=== PATIENT | female | born 1955 | race American Indian/Alaskan Native ===

== ENCOUNTER 2017-02-22 17:53 | Emergency (ER) | payer MEDICAID ==
[2017-02-23 05:12] LABS: Basophils % (Auto) 0.9 % (0.0-1.8); Eosinophils % (Auto) 1.5 % (0.0-4.3); Hematocrit 41.4 % (30.3-42.9); Hemoglobin 13.2 gm/dl (10.1-14.3); Mean Corpuscular HGB Conc 32 % (30-34); Mean Corpuscular Hemoglobin 29 pg (28-32); Mean Corpuscular Volume 89 fl (79-97); Platelet Count 405 K/mm3 (140-440); Red Blood Count 4.65 M/mm3 (3.65-5.03); White Blood Count 14.6 K/mm3 (4.5-11.0)
[2017-02-23 05:21] LABS: BUN/Creatinine Ratio 21.66; Calcium 9.6 mg/dL (8.4-10.2); Chloride 98.7 mmol/L (98-107)
--- NOTE | 2017-02-23 05:35 | Cat Scan Report ---
FINAL REPORT PROCEDURE: CT HEAD/BRAIN WO CON TECHNIQUE: Computerized tomography of the head was performed without contrast material. HISTORY: HEADACHE COMPARISON: No prior studies are available for comparison. FINDINGS: Skull and scalp: Normal. Paranasal sinuses: Normal. Ventricles and subarachnoid spaces: Normal. Cerebrum: No evidence of hemorrhage, acute infarction or mass . Cerebellum and brainstem: No evidence of hemorrhage, acute infarction or mass. Vasculature: Normal. Comments: None. IMPRESSION: There is no intracranial hemorrhage, edema, mass, mass effect or midline shift. The bony calvarium is intact. The paranasal sinuses are clear.
[2017-02-23] MEDS ORDERED: DECADRON IV ONE (06:29)
[2017-02-23] MEDS ORDERED: FIORICET PO ONE (06:29)
[2017-02-23] MEDS ORDERED: REGLAN IV ONE (06:29)
[2017-02-23] MEDS ORDERED: MAGNESIUM SULFATE 2GM/50ML 2 GM/50 ML BAG IV ONE (06:29)
[2017-02-23] MEDS ORDERED: BENADRYL IV ONE (06:29)
--- NOTE | 2017-02-23 06:30 | Emergency Department Report ---
ED General Adult HPI - General Chief complaint: Headache Stated complaint: SEVERE HEADACHE Time Seen by Provider: 02/23/17 06:15 Source: patient, RN notes reviewed, old records reviewed Mode of arrival: Ambulatory Limitations: No Limitations - History of Present Illness Initial comments: This is a 61-year-old female. She is previously unknown to me. Past medical history includes hypertension, diabetes, high cholesterol, GERD, anemia, sciatica, sleep apnea, colonic polyps, diverticulitis and pancreatitis. Her pain specialist is as follows: Kinga Cassidy MD [facility] [address] [place] [address] Main [phone] Fax The patient presents to the ER today with multiple complaints. The patient reports that this past Sunday, her pain specialist did a nerve injection on her bilateral lower back. She reports that shortly thereafter, she developed some nausea and vomiting. She reports that while she was having nausea and vomiting, she accidentally urinated on herself. Since then, the patient has not had any issues with urinary retention, or urinary incontinence. The patient does reports that she's had some issues with fecal incontinence since the procedure. Patient reports that she has the sensation of needing to have a bowel movement, but that she defecates on herself anyhow. She also describes a headache. The headache is throbbing and global. It is not sudden or thunderclap in nature. It did not reach maximal intensity within an hour. This is not the worse headache of her life. The headache has been present for a few days. It reached maximal intensity 2 days after the onset. It has been constant. There is no temporal pain. There is no jaw pain or jaw claudication. -: Gradual Location: head Severity scale (0 -10): 7 Consistency: constant Improves with: none Worsens with: none Associated Symptoms: headaches, nausea/vomiting (now resolved). denies: confusion, chest pain, cough, diaphoresis, loss of appetite, malaise - Related Data Home Medications Medication Instructions Recorded Confirmed Last Taken Aspirin EC [Halfprin EC] 81 mg PO QDAY 01/08/14 02/23/17 09/21/15 09:00 Atenolol [Tenormin] 100 mg PO DAILY 01/08/14 02/23/17 09/22/15 09:00 Folic Acid 1 mg PO DAILY 01/08/14 02/23/17 09/22/15 09:00 Losartan [Cozaar] 100 mg PO QDAY 01/08/14 02/23/17 09/22/15 09:00 Omeprazole [Prilosec] 40 mg PO QDAY 01/08/14 02/23/17 09/22/15 09:00 Pregabalin [Lyrica] 75 mg PO BID 01/08/14 02/23/17 09/22/15 22:00 Valacyclovir HCl [Valacyclovir] 500 mg PO DAILY 01/08/14 02/23/17 09/21/15 09:00 amLODIPine [Norvasc] 10 mg PO DAILY 01/08/14 02/23/17 09/22/15 09:00 metFORMIN [Glucophage] 500 mg PO DAILY 01/08/14 02/23/17 09/22/15 09:00 Albuterol 1 inhalation INHALATION TID 07/14/15 02/23/17 09/03/15 09:00 Iron 325 mg PO TID 07/14/15 02/23/17 09/21/15 09:00 Latanoprost 1 drop OU QHS 07/14/15 02/23/17 09/22/15 22:00 Proventil 0.5% NEBS 1 inhalation INHALATION TID 07/14/15 02/23/17 09/03/15 09:00 Vitamin D3 1 tab PO DAILY 07/14/15 02/23/17 09/22/15 09:00 ZyrTEC 10 mg PO DAILY 07/14/15 02/23/17 09/22/15 09:00 Cyclobenzaprine HCl [Flexeril 5 MG 5 mg PO QDAY 09/14/15 02/23/17 09/22/15 09:00 TAB] Gabapentin [Neurontin] 300 mg PO Q8HR 09/14/15 02/23/17 09/22/15 22:00 Meloxicam [Mobic] 15 mg PO HS 09/14/15 02/23/17 09/22/15 22:00 Pravastatin Sodium [Pravastatin] 40 mg PO QHS 09/14/15 02/23/17 09/22/15 22:00 Temazepam 15 mg PO HS 09/14/15 02/23/17 09/22/15 22:00 Previous Rx's Medication Instructions Recorded Last Taken Type HYDROcodone/APAP 10-325 [[place] 1 each PO Q6HR PRN #14 tablet 05/14/14 09/19/15 09:00 Rx 10/325] Allergies Allergy/AdvReac Type Severity Reaction Status Date / Time latex AdvReac Swelling Verified 07/14/15 09:52 lisinopril AdvReac Unknown Verified 07/14/15 09:52 ED Review of Systems ROS: Stated complaint: SEVERE HEADACHE Other details as noted in HPI Constitutional: denies: fever, malaise Eyes: denies: vision change ENT: denies: epistaxis Respiratory: denies: cough Cardiovascular: denies: chest pain Gastrointestinal: diarrhea. denies: abdominal pain Genitourinary: denies: dysuria Musculoskeletal: denies: back pain, arthralgia, myalgia Skin: denies: lesions Neurological: headache Psychiatric: anxiety ED Past Medical Hx - Past Medical History Previous Medical History?: Yes Hx Hypertension: Yes (1998) Hx Congestive Heart Failure: Yes Hx Diabetes: Yes (2011) Hx GERD: Yes (5YRS) Hx Renal Disease: Yes (renal insufficiency) Hx Arthritis: Yes Hx Asthma: Yes Hx COPD: No Hx HIV: No Additional medical history: bursitis, morpheous-schlederma - Surgical History Past Surgical History?: Yes Hx Breast Surgery: Yes (REDUCTION ) Additional Surgical History: c section, shoulder, tonsil removed bilat carpal tunnel - Social History Smoking Status: Never Smoker Substance Use Type: None - Medications Home Medications: Home Medications Medication Instructions Recorded Confirmed Last Taken Type Aspirin EC [Halfprin EC] 81 mg PO QDAY 01/08/14 02/23/17 09/21/15 09:00 History Atenolol [Tenormin] 100 mg PO DAILY 01/08/14 02/23/17 09/22/15 09:00 History Folic Acid 1 mg PO DAILY 01/08/14 02/23/17 09/22/15 09:00 History Losartan [Cozaar] 100 mg PO QDAY 01/08/14 02/23/17 09/22/15 09:00 History Omeprazole [Prilosec] 40 mg PO QDAY 01/08/14 02/23/17 09/22/15 09:00 History Pregabalin [Lyrica] 75 mg PO BID 01/08/14 02/23/17 09/22/15 22:00 History Valacyclovir HCl [Valacyclovir] 500 mg PO DAILY 01/08/14 02/23/17 09/21/15 09: 00 History amLODIPine [Norvasc] 10 mg PO DAILY 01/08/14 02/23/17 09/22/15 09:00 History metFORMIN [Glucophage] 500 mg PO DAILY 01/08/14 02/23/17 09/22/15 09:00 History HYDROcodone/APAP 10-325 [[place] 1 each PO Q6HR PRN #14 tablet 05/14/14 02/23/17 09/19/15 09:00 Rx 10/325] Albuterol 1 inhalation INHALATION TID 07/14/15 02/23/17 09/03/15 09:00 History Iron 325 mg PO TID 07/14/15 02/23/17 09/21/15 09:00 History Latanoprost 1 drop OU QHS 07/14/15 02/23/17 09/22/15 22:00 History Proventil 0.5% NEBS 1 inhalation INHALATION TID 07/14/15 02/23/17 09/03/15 09: 00 History Vitamin D3 1 tab PO DAILY 07/14/15 02/23/17 09/22/15 09:00 History ZyrTEC 10 mg PO DAILY 07/14/15 02/23/17 09/22/15 09:00 History Cyclobenzaprine HCl [Flexeril 5 MG 5 mg PO QDAY 09/14/15 02/23/17 09/22/15 09: 00 History TAB] Gabapentin [Neurontin] 300 mg PO Q8HR 09/14/15 02/23/17 09/22/15 22:00 History Meloxicam [Mobic] 15 mg PO HS 09/14/15 02/23/17 09/22/15 22:00 History Pravastatin Sodium [Pravastatin] 40 mg PO QHS 09/14/15 02/23/17 09/22/15 22:00 History Temazepam 15 mg PO HS 09/14/15 02/23/17 09/22/15 22:00 History ED Physical Exam - General Limitations: No Limitations General appearance: alert, in no apparent distress - Head Head exam: Present: atraumatic, normocephalic - Eye Eye exam: Present: normal appearance, PERRL, EOMI, other (visual acuity intact to finger counting, color perception, reading at a close distance). Absent: nystagmus - ENT ENT exam: Present: normal exam, normal orophraynx, mucous membranes moist, normal external ear exam - Neck Neck exam: Present: normal inspection, full ROM. Absent: tenderness, meningismus - Respiratory Respiratory exam: Present: normal lung sounds bilaterally. Absent: respiratory distress, wheezes, rales, rhonchi, stridor, chest wall tenderness, accessory muscle use, decreased breath sounds, prolonged expiratory - Cardiovascular Cardiovascular Exam: Present: regular rate, normal rhythm, normal heart sounds. Absent: bradycardia, tachycardia, irregular rhythm, systolic murmur, diastolic murmur, rubs, gallop - GI/Abdominal GI/Abdominal exam: Present: soft, normal bowel sounds. Absent: distended, tenderness, guarding, rebound, rigid, pulsatile mass - Rectal Rectal exam: Present: normal inspection, normal rectal tone, other (during rectal examination, I am escorted by nurse DEVI RAMIREZ) - Extremities Exam Extremities exam: Present: normal inspection, full ROM, normal capillary refill. Absent: tenderness, pedal edema, joint swelling, calf tenderness - Back Exam Back exam: Present: normal inspection, full ROM. Absent: tenderness, CVA tenderness (R), CVA tenderness (L), muscle spasm, paraspinal tenderness, vertebral tenderness - Neurological Exam Neurological exam: Present: alert, oriented X3, normal gait, other (Extraocular movements intact. Tongue midline. No facial droop. Facial sensation intact to light touch in the V1, V2, V3 distribution bilaterally. 5 and 5 strength in 4 extremities.. Sensation is intact to light touch in 4 extremities.). Absent : motor sensory deficit (sensation is intact to light touch, pinprick, proprioception in 4 extremities. Downgoing plantar reflexes in the bilateral lower extremities.) - Psychiatric Psychiatric exam: Present: normal affect, normal mood - Skin Skin exam: Present: warm, dry, intact, normal color. Absent: rash ED Course Vital Signs 02/23/17 02/23/17 02/23/17 04:13 05:46 11:27 Temperature 98.1 F 98.1 F Pulse Rate 71 66 70 Respiratory 18 14 18 Rate Blood Pressure 152/75 Blood Pressure 151/72 162/79 [Left] O2 Sat by Pulse 97 98 100 Oximetry 02/23/17 15:00 Temperature 98.5 F Pulse Rate 80 Respiratory 16 Rate Blood Pressure Blood Pressure 145/101 [Left] O2 Sat by Pulse 99 Oximetry - Reevaluation(s) Reevaluation #1: 02/23/17 08:35 Differential diagnosis: Migraine headache, tension headache, cluster headache, diarrhea, urinary tract infection, spinal cord injury Assessment and plan: 61-year-old female with headache and nonspecific reported fecal incontinence. She is afebrile with unremarkable vital signs with the exception of slight hypertension. She has a GCS of 15, with an NIH score of 0, and she walks with a steady gait. Objectively speaking, her neurologic examination is unremarkable, she has appropriate strength, sensation, there is no saddle anesthesia, there is no rectal tone. Furthermore, she is able to control her bladder, and her postvoid residual was 80 mL. This clinical presentation is very unlikely to be consistent with epidural compression syndrome, tethered cord, or spinal cord injury. Nevertheless, an MR of the lumbar spine has been performed. She is treated symptomatically for her headache, and by history her headache is not consistent with stroke or subarachnoid hemorrhage. We are currently awaiting results of the MRI of her lumbar spine. I will discuss with her pain specialist to determine what specific procedure she had done. Reevaluation #2: 02/23/17 09:27 received a call back from Dr Kinga Cassidy MD he indicates that the patient had l3-l4, l4-l5, l5-s1 radio frequency facet joint ablation not in the epidural space Reevaluation #3: 02/23/17 11:47 case is discussed with Dr. Concepcion, neurosurgeon at [facility]. He reports that based on the patient's history and physical, the patient is not appropriate for surgical intervention at this time, does not require transfer for emergent neurosurgical consultation. He further indicates that the findings of arachnoiditis or radiographic findings, sometimes inflammatory, but not suggestive of infectious symptoms. He does recommend contacting the patient 's physical medicine physician, and seeing if they have an old MRI to compare to. Reevaluation #4: 02/23/17 12:40 called [facility] to discuss with their neurosurgeon, they are unable to take the call as they have no beds [place] [facility] [place]uation #5: 02/23/17 12:47 Case is discussed with Dr. Benavidez, physician at [facility], who accepts the patient as an ER to ER transfer for neurosurgical consultation. old mri report reviewed, findings are new, it will be scanned into chart 02/23/17 12:49 02/23/17 15:40 ED Medical Decision Making - Lab Data Result diagrams: 02/23/17 04:35 02/23/17 04:35 Vital Signs 02/23/17 02/23/17 04:13 05:46 Temperature 98.1 F Pulse Rate 71 66 Respiratory 18 14 Rate Blood Pressure 152/75 Blood Pressure 151/72 [Left] O2 Sat by Pulse 97 98 Oximetry Labs 02/23/17 02/23/17 02/23/17 04:35 04:35 06:54 WBC 14.6 H RBC 4.65 Hgb 13.2 Hct 41.4 MCV 89 MCH 29 MCHC 32 RDW 13.0 L Plt Count 405 Lymph % (Auto) 29.0 [place] % (Auto) 7.3 Eos % (Auto) 1.5 Baso % (Auto) 0.9 Lymph # 4.2 [place] # 1.1 H Eos # 0.2 Baso # 0.1 Seg Neutrophils % 61.3 Seg Neutrophils # 9.0 H Sodium 139 Potassium 4.0 Chloride 98.7 Carbon Dioxide 22 Anion Gap 22 BUN 39 H Creatinine 1.8 H Estimated GFR 35 BUN/Creatinine Ratio 21.66 Glucose 137 H Calcium 9.6 Urine Color Yellow Urine Turbidity Slightly-cloudy Urine pH 5.0 Ur Specific [place] 1.015 Urine Protein <15 mg/dl Urine Glucose (UA) Neg Urine Ketones Neg Urine Blood Sm Urine Nitrite Neg Urine Bilirubin Neg Urine Urobilinogen < 2.0 Ur Leukocyte Esterase Mod Urine WBC (Auto) 7.0 H Urine RBC (Auto) 6.0 U Epithel Cells (Auto) 7.0 Urine Bacteria (Auto) 1+ Hyaline Casts 6 Urine Mucus Few - Radiology Data Radiology results: report reviewed, image reviewed Noncontrast CT scan of the brain is negative Critical care attestation.: If time is entered above; I have spent that time in minutes in the direct care of this critically ill patient, excluding procedure time. ED Disposition Clinical Impression: Renal insufficiency, History of incontinence of feces Disposition: [id number] GEN HOSP IP Is pt being admited?: No Does the pt Need Aspirin: No Condition: Good Referrals: PRIMARY CARE, [Primary Care Provider] - 3-5 Days
[2017-02-23 07:10] LABS: Bacteria,Urine 1+ /HPF (Negative); Bilirubin,Urine NEG (Negative); Blood,Urine SM (Negative); Ketones,Urine NEG (Negative); Leukocyte Esterase,Urine MOD (Negative); Mucus,Urine FEW /HPF; Nitrite,Urine NEG (Negative); Protein,Urine <15 mg/dL mg/dL (Negative); Urobilinogen,Urine < 2.0 mg/dL (<2.0)
[2017-02-23] MEDS ORDERED: NACL 0.9% 1000 ML 1,000 ML IV ONE (08:30)
--- NOTE | 2017-02-23 10:40 | Magnetic Resonance Report ---
MRI scan lumbar spine: History: Back pain. Technique: Multiplanar multisequence images were obtained without contrast injection. Findings: Conus medullaris terminates at L1 with normal signal intensity. Normal lumbar lordosis. Normal pre-and paravertebral soft tissue. Normal height and signal intensity of vertebral bodies. Decrease in signal intensity of L4-L5 with degenerative changes in the adjacent endplates. L1-L2. Normal. L2-L3. Normal. L3-L4. No neuroforamina narrowing or central canal spinal stenosis.. Facet joints are present about unremarkable. L4-L5. Bilateral moderate to severe neuroforamina narrowing with mild central canal spinal stenosis. There is thickening and matting of nerve roots within the thecal sac. Also noted fluid in the facet joints. L5-S1. There is noted broad-based central disc bulge extending from 4:00 to 8:00 position causing extrinsic pressure on the ventral aspect of the thecal sac. Mild narrowing of neural foramina bilaterally. Degenerative facet joints. The nerve roots within the thecal sac are not optimally visualized. 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 MRI scan with contrast study is recommended. Additional findings as detailed above.
[2017-02-23] MEDS ORDERED: MORPHINE IV ONE (11:12)
[2017-02-23 15:02] VITALS: BP 145/101
== END 2017-02-23 15:02 | disposition short-term general hospital (02) ==
LOC: ED 17:53
DX: N28.9 Disorder of kidney and ureter, unspecified (principal); R15.9 Full incontinence of feces; I13.0 Hypertensive heart and chronic kidney disease with heart failure and stage 1 through stage 4 chronic kidney disease, or unspecified chronic kidney disease; E11.22 Type 2 diabetes mellitus with diabetic chronic kidney disease; N18.9 Chronic kidney disease, unspecified; I50.9 Heart failure, unspecified; K21.9 Gastro-esophageal reflux disease without esophagitis; M19.90 Unspecified osteoarthritis, unspecified site; J45.909 Unspecified asthma, uncomplicated; Z98.890 Other specified postprocedural states; Z90.89 Acquired absence of other organs; Z91.040 Latex allergy status; Z88.8 Allergy status to other drugs, medicaments and biological substances
CPT/HCPCS: 36415; 70450; 72148; 80048; 81001; 85025; 96361; 96365; 96375; 99285; J1100; J1200; J2270; J2765; J3475

== ENCOUNTER 2018-11-27 10:17 | Day surgery (SDC) | payer MEDICAID ==
[2018-11-27] MEDS ORDERED: NACL 0.9% 1000 ML 1,000 ML IV SCH (11:08)
[2018-11-27] MEDS ORDERED: DIPRIVAN 10 MG/ML IV ONE (12:04)
[2018-11-27] MEDS ORDERED: XYLOCAINE 1% 20 mL ONE (12:05)
[2018-11-27] MEDS ORDERED: NEO SYNEPHRINE/NS Syringe(OR USE) IV ONE (12:06)
[2018-11-27] MEDS ORDERED: KETALAR ONE (12:07)
--- NOTE | 2018-11-27 12:10 | Anesthesia Day of Surgery ---
Anesthesia Day of Surgery - Day of Surgery Patient Examined: Yes Patient H&P Reviewed: Yes Patient is NPO: Yes Beta Blockers: Yes
--- NOTE | 2018-11-27 12:11 | Anesthesia Consultation ---
Anesthesia Consult and Med Hx Date of service: 11/27/18 - Airway Anesthetic Teeth Evaluation: Good ROM Head & Neck: Adequate Mental/Hyoid Distance: Adequate Mallampati Class: Class III Intubation Access Assessment: Good - Pulmonary Exam CTA: No - Cardiac Exam Cardiac Exam: No Murmur - Pre-Operative Health Status ASA Pre-Surgery Classification: ASA3 Proposed Anesthetic Plan: MAC - Pulmonary Hx Smoking: Yes Hx Asthma: Yes SOB: Yes COPD: No Hx Sleep Apnea: Yes - Cardiovascular System Hx Hypertension: Yes - Central Nervous System Hx Back Pain: Yes (NECK AND SHOULDER PAIN 3/10 AT REST R/T [place];) Hx Psychiatric Problems: No - Gastrointestinal Hx Gastroesophageal Reflux Disease: Yes (dysphagia) - Endocrine Hx Renal Disease: Yes (renal insufficiency) Hx End Stage Renal Disease: No Hx Insulin Dependent Diabetes: Yes Hx Non-Insulin Dependent Diabetes: Yes (Takes metformin Pancreatitis 2011) Hx Hypothyroidism: Yes - Hematic Hx Anemia: Yes - Other Systems Hx Substance Use: Yes (YEARS 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
--- NOTE | 2018-11-27 12:50 | Procedure Note ---
Date of procedure: 11/27/18 Pre-op diagnosis: Colon Polyp Screening/ F/H/O Cancer Post-op diagnosis: other (No Colon polyps, diverticular disease or colitis noted/ mild to Moderate Internal Hemorrhoid) Procedure: Colonoscopy Anesthesia: MAC Surgeon: CIRA VARELA Estimated blood loss: minimal Pathology: none Specimen disposition: to lab Condition: stable Disposition: same day (Resume home medication and follow up in 1 to 2 weeks ([phone]).)
--- NOTE | 2018-11-27 13:04 | Operative Report ---
PROCEDURE: Colonoscopy. INDICATIONS: This is a 62-year-old obese -[place] female with an underlying history of diabetes mellitus type 2, hypertension, morbid obesity, and scleroderma, who has a family history of cancer. The patient's sister had ovarian cancer. Colonoscopy was done as part of colon polyp screening. DESCRIPTION OF PROCEDURE: Procedure was done after getting informed consent with MAC anesthesia. Initial rectal exam was unremarkable. Instrument was passed through the rectum onto the cecum, which was identified with ileocecal valve and appendiceal orifice. Visualization was fair. The scope was withdrawn up to the hepatic flexure and then reintroduced. No colon polyps were noted in the proximal colon, which is the cecum and the ascending colon as well as the transverse colon, descending colon and sigmoid likewise showed normal mucosa. There was no evidence of any polyps, colitis or diverticular disease. The rectum showed mild to moderate internal hemorrhoids. No other pathology was noted. There was no bleeding associated with the procedure. No complications associated with the procedure. ASSESSMENT: Colon polyp screening, family history of cancer. The patient's sister had ovarian cancer. No colon polyps noted. Mild to moderate internal hemorrhoids. PLAN: To resume previous medication. Have the patient follow up in the office in 1-2 weeks' time. Again, there was no bleeding or complications associated with the procedure and RNEssie was in the room throughout the entirety of the procedure. JOB# [id number] BOO/JOHN
[2018-11-27 14:11] VITALS: BP 117/72
== END 2018-11-27 10:18 | disposition home or self-care (01) ==
LOC: GIO 10:17
DX: Z12.11 Encounter for screening for malignant neoplasm of colon (principal); K64.8 Other hemorrhoids; I10 Essential (primary) hypertension; E66.01 Morbid (severe) obesity due to excess calories; H40.9 Unspecified glaucoma; I11.0 Hypertensive heart disease with heart failure; I50.9 Heart failure, unspecified; E78.5 Hyperlipidemia, unspecified; E78.00 Pure hypercholesterolemia, unspecified; G47.30 Sleep apnea, unspecified; J45.909 Unspecified asthma, uncomplicated; K21.9 Gastro-esophageal reflux disease without esophagitis; M19.90 Unspecified osteoarthritis, unspecified site; M79.7 Fibromyalgia; E10.39 Type 1 diabetes mellitus with other diabetic ophthalmic complication; E03.9 Hypothyroidism, unspecified; F41.9 Anxiety disorder, unspecified; F32.9 Major depressive disorder, single episode, unspecified; Z80.41 Family history of malignant neoplasm of ovary; Z79.899 Other long term (current) drug therapy; Z91.040 Latex allergy status; Z79.82 Long term (current) use of aspirin; Z79.84 Long term (current) use of oral hypoglycemic drugs; Z79.01 Long term (current) use of anticoagulants; Z87.891 Personal history of nicotine dependence; Z90.49 Acquired absence of other specified parts of digestive tract; Z68.43 Body mass index [BMI] 50.0-59.9, adult; Z98.891 History of uterine scar from previous surgery; Z98.890 Other specified postprocedural states; Z88.8 Allergy status to other drugs, medicaments and biological substances; Z86.2 Personal history of diseases of the blood and blood-forming organs and certain disorders involving the immune mechanism
CPT/HCPCS: 45378; 82962; J2370; J2704; J7030

== ENCOUNTER 2020-11-22 10:02 | Outpatient (CLI) | payer MEDICAID ==
[2020-11-22] MEDS ORDERED: LIDOCAINE (4%) 40 MG/ML TOPICAL SOLN 50 ML BOTTLE TP ONE (13:18)
== END 2020-11-22 10:03 | disposition home or self-care (01) ==
LOC: WOUND 10:02
PROVIDERS: ATTEND Surgery
DX: S31.104A Unspecified open wound of abdominal wall, left lower quadrant without penetration into peritoneal cavity, initial encounter (principal); E11.9 Type 2 diabetes mellitus without complications; I10 Essential (primary) hypertension; E78.00 Pure hypercholesterolemia, unspecified; J45.909 Unspecified asthma, uncomplicated; K21.9 Gastro-esophageal reflux disease without esophagitis; E66.01 Morbid (severe) obesity due to excess calories; F32.9 Major depressive disorder, single episode, unspecified; Z68.43 Body mass index [BMI] 50.0-59.9, adult; Z87.891 Personal history of nicotine dependence; Z79.82 Long term (current) use of aspirin; Z79.4 Long term (current) use of insulin; X58.XXXA Exposure to other specified factors, initial encounter; Y93.89 Activity, other specified; Y92.89 Other specified places as the place of occurrence of the external cause; Y99.8 Other external cause status
CPT/HCPCS: 99205; 99215; G0463